=== PATIENT | male | born 1980 | race Caucasian/White ===

== ENCOUNTER 2019-12-15 14:32 | Emergency (ER) | payer SELFPAY ==
[~2019-12-15] VITALS: Ht 172.7 cm; Wt 63.5 kg
[2019-12-15] MEDS ORDERED: ACYCLOVIR200 MG PO (14:46)
[2019-12-15] MEDS ORDERED: IBUPROFEN800 MG PO (14:46)
[2019-12-15] MEDS ORDERED: NORCO 7.5-3251 EACH PO (15:26)
== END 2019-12-15 15:57 | disposition home or self-care (01) ==
LOC: ED 14:32
DX: S62.141A Displaced fracture of body of hamate [unciform] bone, right wrist, initial encounter for closed fracture (principal); M67.442 Ganglion, left hand; F17.210 Nicotine dependence, cigarettes, uncomplicated; X58.XXXA Exposure to other specified factors, initial encounter
CPT/HCPCS: 29125; 73130; 99283-25

== ENCOUNTER 2020-03-09 06:41 | Emergency (ER) | payer OTHER ==
[~2020-03-09] VITALS: Ht 175.3 cm; Wt 68.0 kg
[~2020-03-09 06:41] MED LIST: ACYCLOVIR200 MG PO; IBUPROFEN800 MG PO; NORCO 7.5-3251 EACH PO
[2020-03-09] MEDS ORDERED: KEFLEX500 MG PO (08:01)
== END 2020-03-09 08:13 | disposition home or self-care (01) ==
LOC: ED 06:41
DX: S61.231A Puncture wound without foreign body of left index finger without damage to nail, initial encounter (principal); F17.200 Nicotine dependence, unspecified, uncomplicated; Z79.899 Other long term (current) drug therapy; W22.8XXA Striking against or struck by other objects, initial encounter
CPT/HCPCS: 73140; 90471; 90715; 99283-25

== ENCOUNTER 2021-07-02 12:59 | Emergency (ER) | payer OTHER ==
[~2021-07-02] VITALS: Ht 175.3 cm; Wt 68.0 kg
[~2021-07-02 12:59] MED LIST changes: +KEFLEX500 MG PO
[2021-07-02] MEDS ORDERED: ACYCLOVIR400 MG PO (16:04)
== END 2021-07-02 16:24 | disposition home or self-care (01) ==
LOC: ED 12:59
DX: S61.411A Laceration without foreign body of right hand, initial encounter (principal); F17.200 Nicotine dependence, unspecified, uncomplicated; W26.0XXA Contact with knife, initial encounter
CPT/HCPCS: 12002; 99282-25